=== PATIENT | female | born 2000 | race African-American/Black ===

== ENCOUNTER 2022-03-15 08:38 | Emergency (ER) | payer OTHER ==
[2022-03-15] MEDS ORDERED: Ondansetron ODT 4 MG TAB ONE (09:37)
[2022-03-15] MEDS ORDERED: Dicyclomine 20 MG TAB ONE (09:39)
== END 2022-03-15 10:40 | disposition home or self-care (01) ==
LOC: CSHERS 08:38
DX: J01.90 Acute sinusitis, unspecified (principal); B34.9 Viral infection, unspecified; I10 Essential (primary) hypertension; K21.9 Gastro-esophageal reflux disease without esophagitis; Z20.822 Contact with and (suspected) exposure to COVID-19
CPT/HCPCS: 87081; 87430; 87804; 99283; Q0162; U0003; U0005